=== PATIENT | male | born 1965 | race Caucasian/White ===

== ENCOUNTER 2018-09-21 23:04 | Emergency (ER) | payer MEDICARE ==
[~2018-09-21] VITALS: Ht 188 cm; Wt 81.0 kg
[2018-09-21 23:07] VITALS: Ht 188 cm; Wt 81.0 kg
[2018-09-22] MEDS ORDERED: LEVETIRACETAM 1000 MG (PMX) 100 ML IVPB STA (01:35)
--- NOTE | 2018-09-22 03:09 | ERD ---
ER Documentation Chief Complaint Chief Complaint S/P SEIZURE, REPORTS 2 EPISODES TODAY, REQUESTING MED REFILL, DX TONIC CLON HPI Is a 52-year-old male history of seizure disorder comes in via EMS setting of 2 seizures today. He says he out of his medications. Denies fevers chills nausea vomiting denies tongue biting. Denies incontinence. ROS All systems reviewed and are negative except as per history of present illness. Allergies Allergies: Coded Allergies: Penicillins (Verified Allergy, Unknown, 09/22/18) PMhx/Soc History of Surgery: No Anesthesia Reaction: No Hx Neurological Disorder: Yes (SEIZURES) Hx Respiratory Disorders: No Hx Cardiac Disorders: No Hx Psychiatric Problems: Yes Hx Miscellaneous Medical Probl: Yes (CANCER, HIV) Hx Alcohol Use: Yes Hx Substance Use: Yes (MARIJUANA, METHAMPHETAMINE) Hx Tobacco Use: No Smoking Status: Never smoker Physical Exam Vitals Vital Signs Date Temp Pulse Resp B/P (MAP) Pulse Ox O2 O2 Flow FiO2 Time Delivery Rate 09/22/18 81 18 121/71 98 Room Air 02:00 (88) 09/22/18 97.4 82 22 110/71 99 Room Air 00:05 (84) 09/21/18 97.4 82 18 114/64 98 23:07 (81) Physical Exam Const: No acute distress Head: Atraumatic Eyes: Normal Conjunctiva ENT: Normal External Ears, Nose and Mouth. Neck: Full range of motion. No meningismus. Resp: Clear to auscultation bilaterally Cardio: Regular rate and rhythm, no murmurs Abd: Soft, non tender, non distended. Normal bowel sounds Skin: No petechiae or rashes Back: No midline or flank tenderness Ext: No cyanosis, or edema Neur: Awake and alert Psych: Normal Mood and Affect Result Diagram: 09/21/18 2355 09/21/18 2355 Results 24 hrs Laboratory Tests Test 09/21/18 23:55 09/22/18 01:54 White Blood Count 11.1 10^3/ul Red Blood Count 4.36 10^6/ul Hemoglobin 10.6 g/dl Hematocrit 34.6 % Mean Corpuscular Volume 79.4 fl Mean Corpuscular Hemoglobin 24.3 pg Mean Corpuscular Hemoglobin Concent 30.6 g/dl Red Cell Distribution Width 19.2 % Platelet Count 205 10^3/UL Mean Platelet Volume 11.1 fl Immature Granulocytes % 0.500 % Neutrophils % % Lymphocytes % % Monocytes % % Eosinophils % % Basophils % % Nucleated Red Blood Cells % 0.0 /100WBC Immature Granulocytes # 0.050 10^3/ul Neutrophils # 10^3/ul Lymphocytes # 10^3/ul Monocytes # 10^3/ul Eosinophils # 10^3/ul Basophils # 10^3/ul Nucleated Red Blood Cells # 10^3/ul Sodium Level 143 mmol/L Potassium Level 3.8 mmol/L Chloride Level 104 mmol/L Carbon Dioxide Level 32 mmol/L Anion Gap 7 Blood Urea Nitrogen 33 mg/dl Creatinine 0.83 mg/dl Est Glomerular Filtrat Rate mL/min > 60 mL/min Glucose Level 92 mg/dl Calcium Level 9.0 mg/dl Valproic Acid (Depakene) Level Pending Bedside Glucose 103 mg/dL Current Medications Medications Dose Sig/Camilo Start Time Status Last (Trade) Ordered Route PRN Stop Time Admin Dose Reason Admin 100 ml @ ONCE STAT 09/22/18 DC 09/22/18 Levetiracetam 400 mls/hr IVPB 01:35 02:26 09/22/18 01:49 Procedures/MDM Medical decision making: Is a 52-year-old male who essentially comes in for 30. Is been treated loaded here with medication. Will be discharged home with refills for his prescriptions. Asked to follow-up with primary care. Return for further seizure-like activity. Departure Diagnosis: Primary Impression: Seizure Condition: Stable LALITO STODDARD Sep 22, 2018 03:09
[2018-09-22] MEDS ORDERED: LEVE-5 PO (03:11)
[2018-09-22] MEDS ORDERED: DIVA-48 PO (03:11)
[2018-09-22] MEDS ORDERED: LEVE100018 PO (03:39)
[2018-09-22 03:40] VITALS: BP 118/72; PULSE 88; RESP 20
== END 2018-09-22 04:43 | disposition home or self-care (01) ==
LOC: E/R 23:04
DX: R56.9 Unspecified convulsions (principal); R40.2142 Coma scale, eyes open, spontaneous, at arrival to emergency department; R40.2362 Coma scale, best motor response, obeys commands, at arrival to emergency department; R40.2252 Coma scale, best verbal response, oriented, at arrival to emergency department; Z21 Asymptomatic human immunodeficiency virus [HIV] infection status; Z85.9 Personal history of malignant neoplasm, unspecified
CPT/HCPCS: 36415; 80048; 80164; 82962; 85025; 96374; 99284; J1953